=== PATIENT | female | born 2000 | race Caucasian/White ===

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

== ENCOUNTER 2019-09-13 19:23 | Emergency (ER) | payer BC, OTHER ==
--- NOTE | 2019-09-13 20:11 | EDPHYS ---
Physician Documentation [facility] Name: Jennifer Morley Age: 18 yrs Sex: Female : 2000 Arrival Date: 09/13/2019 Time: 19:26 Bed DIS3 Private MD: ED Physician Aba Echeverria HPI: 09/13 20:02 This 18 yrs old Female presents to ER via Ambulatory with complaints of Uti mady and fear of uti. 20:02 The patient presents with urinary symptoms, frequency, hesitancy, vaginal discharge. mady Onset: The symptoms/episode began/occurred 3 day(s) ago. Modifying factors: The symptoms are alleviated by nothing, the symptoms are aggravated by nothing. Associated signs and symptoms: Pertinent positives: urinary frequency. Severity of symptoms: At their worst the symptoms were mild, in the emergency department the symptoms are unchanged. The patient has not experienced similar symptoms in the past. 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 - Social history:: Smoking status: Patient uses tobacco products, smokes one pack cigarettes per day. - Ebola Screening: : No symptoms or risks identified at this time. - Family history:: not pertinent. ROS: 20:02 Constitutional: Negative for fever, chills, and weight loss, Eyes: Negative for injury, mady pain, redness, and discharge, ENT: Negative for injury, pain, and discharge, Neck: Negative for injury, pain, and swelling, Cardiovascular: Negative for chest pain, palpitations, and edema, Respiratory: Negative for shortness of breath, cough, wheezing, and pleuritic chest pain, Abdomen/GI: Negative for abdominal pain, nausea, vomiting, diarrhea, and constipation, Back: Negative for injury and pain, MS/Extremity: Negative for injury and deformity, Skin: Negative for injury, rash, and discoloration, Neuro: Negative for headache, weakness, numbness, tingling, and seizure. 20:02 : Positive for urinary symptoms, pelvic pain, urinary frequency, small amounts, vaginal discharge. Exam: 20:02 Constitutional: This is a well developed, well nourished patient who is awake, alert, mady and in no acute distress. Head/Face: Normocephalic, atraumatic. Eyes: Pupils equal round and reactive to light, extra-ocular motions intact. Lids and lashes normal. Conjunctiva and sclera are non-icteric and not injected. Cornea within normal limits. Periorbital areas with no swelling, redness, or edema. ENT: Nares patent. No nasal discharge, no septal abnormalities noted. Tympanic membranes are normal and external auditory canals are clear. Oropharynx with no redness, swelling, or masses, exudates, or evidence of obstruction, uvula midline. Mucous membranes moist. Neck: Trachea midline, no thyromegaly or masses palpated, and no cervical lymphadenopathy. Supple, full range of motion without nuchal rigidity, or vertebral point tenderness. No Meningismus. Chest/axilla: Normal chest wall appearance and motion. Nontender with no deformity. No lesions are appreciated. Cardiovascular: Regular rate and rhythm with a normal S1 and S2. No gallops, murmurs, or rubs. Normal PMI, no JVD. No pulse deficits. Respiratory: Lungs have equal breath sounds bilaterally, clear to auscultation and percussion. No rales, rhonchi or wheezes noted. No increased work of breathing, no retractions or nasal flaring. Abdomen/GI: Soft, non-tender, with normal bowel sounds. No distension or tympany. No guarding or rebound. No evidence of tenderness throughout. Back: No spinal tenderness. No costovertebral tenderness. Full range of motion. Skin: Warm, dry with normal turgor. Normal color with no rashes, no lesions, and no evidence of cellulitis. MS/ Extremity: Pulses equal, no cyanosis. Neurovascular intact. Full, normal range of motion. Neuro: Awake and alert, GCS 15, oriented to person, place, time, and situation. Cranial nerves II-XII grossly intact. Motor strength 5/5 in all extremities. Sensory grossly intact. Cerebellar exam normal. Normal gait. Vital Signs: 19:38 BP 107 / 61; Pulse 95; Resp 18; Temp 98.2(O); Pulse Ox 97% on R/A; Weight 58.97 kg (R); lp1 Pain 0/10; MDM: 19:37 Patient medically screened. [facility] 20:02 Data reviewed: vital signs, nurses notes, lab test result(s), urinalysis. [facility] 09/13 20:11 Order name: Urine Dipstick--Ancillary (enter results) [facility] 09/13 20:11 Order name: Urine --Ancillary (enter results) [facility] 09/13 19:37 Order name: Urine Dipstick-Ancillary (obtain specimen); Complete Time: 20:57 [facility] 09/13 19:37 Order name: Urine Test (obtain specimen); Complete Time: 20:56 [facility] Administered Medications: 20:24 Drug: Zithromax 1 grams Route: PO; aj1 20:56 Follow up: Response: No adverse reaction aj1 20:24 Drug: Flagyl 2 grams Route: PO; aj1 20:56 Follow up: Response: No adverse reaction aj1 20:24 Drug: Zofran 4 mg Route: PO; aj1 20:56 Follow up: Response: No adverse reaction [facility] 20:25 Drug: Rocephin (cefTRIAXone) 500 mg Route: IM; Site: right gluteus; aj1 20:55 Follow up: Response: No adverse reaction aj1 Disposition: 09/13/19 20:10 Discharged to Home. Impression: Dysuria, Candidiasis. - Condition is Stable. - Discharge Instructions: Dysuria, Pelvic Rest. - Prescriptions for Fluconazole 150 mg Oral Tablet - take 1 tablet by ORAL route once daily take 1 and the remaining pill in 7 days; 2 tablet. - Medication Reconciliation Form, Thank You Letter, Antibiotic Education, Prescription Opioid Use form. - Follow up: Private Physician; When: 2 - 3 days; Reason: Recheck today's complaints, Continuance of care, Re-evaluation by your physician. Follow up: Huy Graham; When: 2 - 3 days; Reason: Recheck today's complaints, Re-evaluation by your physician. - Problem is new. - Symptoms have improved. Signatures: Dispatcher [employer] Manuela Xie, RN RN aj1 Aba Echeverria MD MD cha Pena, Laura, RN RN lp1 Corrections: (The following items were deleted from the chart) 21:01 20:10 09/13/2019 20:10 Discharged to Home. Impression: Dysuria; Candidiasis. Condition aj1 is Stable. Discharge Instructions: Dysuria, Pelvic Rest. Prescriptions for Fluconazole 150 mg Oral Tablet - take 1 tablet by ORAL route once daily take 1 and the remaining pill in 7 days; 2 tablet. and Forms are Medication Reconciliation Form, Thank You Letter, Antibiotic Education, Prescription Opioid Use. Follow up: Private Physician; When: 2 - 3 days; Reason: Recheck today's complaints, Continuance of care, Re-evaluation by your physician. Follow up: Huy Graham; When: 2 - 3 days; Reason: Recheck today's complaints, Re-evaluation by your physician. Problem is new. Symptoms have improved. mady
--- NOTE | 2019-09-13 20:11 | ER ---
Nurse's Notes [facility] Name: Jennifer Morley Age: 18 yrs Sex: Female : 2000 Arrival Date: 09/13/2019 Time: 19:26 Bed DIS3 Private MD: Diagnosis: Dysuria;Candidiasis Presentation: 09/13 19:30 Presenting complaint: Patient states: Given antibiotics for UTI about a week ago but lp1 dog ate them; States being diagnosed with yeast infection as well; Requesting to have STD testing done; Complaint of vaginal discharge. Transition of care: patient was not received from another setting of care. Onset of symptoms was September 13, 2019. Risk Assessment: Do you want to hurt yourself or someone else? Patient reports no desire to harm self or others. Initial Sepsis Screen: Does the patient meet any 2 criteria? No. Patient's initial sepsis screen is negative. Does the patient have a suspected source of infection? No. Patient's initial sepsis screen is negative. Care prior to arrival: None. 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 - Social history:: Smoking status: Patient uses tobacco products, smokes one pack cigarettes per day. - Ebola Screening: : No symptoms or risks identified at this time. - Family history:: not pertinent. Screenin:33 Abuse screen: Denies threats or abuse. Denies injuries from another. Nutritional lp1 screening: No deficits noted. Tuberculosis screening: No symptoms or risk factors identified. Fall Risk None identified. Assessment: 19:58 General: Appears in no apparent distress. comfortable, Behavior is calm, cooperative, aj1 appropriate for age. Pain: Complains of pain in pelvis. Neuro: Level of Consciousness is awake, alert, obeys commands. Cardiovascular: Patient's skin is warm and dry. Respiratory: Airway is patent Respiratory effort is even, unlabored, Respiratory pattern is regular, symmetrical. GI: No signs and/or symptoms were reported involving the gastrointestinal system. : Reports discharge, from vagina that is urgency, urinary frequency. EENT: No signs and/or symptoms were reported regarding the EENT system. Derm: No signs and/or symptoms reported regarding the dermatologic system. Skin is pink, warm \T\ dry. normal. Musculoskeletal: No signs and/or symptoms reported regarding the musculoskeletal system. Circulation, motion, and sensation intact. 20:58 Reassessment: Patient appears in no apparent distress at this time. No changes from aj1 previously documented assessment. Patient and/or family updated on plan of care and expected duration. Pain level reassessed. Patient is alert, oriented x 3, equal unlabored respirations, skin warm/dry/pink. Vital Signs: 19:38 BP 107 / 61; Pulse 95; Resp 18; Temp 98.2(O); Pulse Ox 97% on R/A; Weight 58.97 kg (R); lp1 Pain 0/10; ED Course: 19:26 Patient arrived in ED. cl3 19:33 Triage completed. lp1 19:33 Arm band placed on. lp1 19:37 Aba Echeverria MD is Attending Physician. mady 19:50 Manuela Keith RN is Primary Nurse. aj1 19:58 Patient has correct armband on for positive identification. aj1 19:58 No provider procedures requiring assistance completed. aj1 20:10 Huy Graham MD is Referral Physician. mady 20:58 Patient did not have IV access during this emergency room visit. aj1 Administered Medications: 20:24 Drug: Zithromax 1 grams Route: PO; aj1 20:56 Follow up: Response: No adverse reaction aj1 20:24 Drug: Flagyl 2 grams Route: PO; aj1 20:56 Follow up: Response: No adverse reaction aj1 20:24 Drug: Zofran 4 mg Route: PO; aj1 20:56 Follow up: Response: No adverse reaction aj1 20:25 Drug: Rocephin (cefTRIAXone) 500 mg Route: IM; Site: right gluteus; aj1 20:55 Follow up: Response: No adverse reaction aj1 Outcome: 20:10 Discharge ordered by . mady 20:58 Discharged to home ambulatory. aj1 20:58 Condition: good 20:58 Discharge instructions given to patient, family, Instructed on discharge instructions, follow up and referral plans. medication usage, Demonstrated understanding of instructions, follow-up care, medications, Prescriptions given X 1. 21:01 Patient left the ED. aj1 Signatures: Manuela Keith RN RN [email or web address] Aba Echeverria MD MD cha Pena, Laura, RN RN lp1 Aakash Arreola cl3
[2019-09-13] MEDS ORDERED: metroNIDAZOLE 500 MG TABLET ONE (20:12)
[2019-09-13] MEDS ORDERED: AZITHROMYCIN 250 MG TAB ONE (20:12)
[2019-09-13] MEDS ORDERED: ONDANSETRON 4 MG (ODT) TAB ONE (20:13)
[2019-09-13] MEDS ORDERED: CEFTRIAXONE 1000 MG/VIAL ONE (20:13)
[2019-09-13 20:27] LABS: Urine Blood NEGATIVE (NEG); Urine Glucose NEGATIVE (NEG); Urine Protein NEGATIVE (NEG); Urine Specific Gravity 1.015 (1.005-1.030)
[2019-09-13 22:21] VITALS: BP 107/61; TEMP 98.2; O2SAT 97
== END 2019-09-13 21:01 | disposition home or self-care (01) ==
LOC: ER 19:23
DX: R30.0 Dysuria (principal); B37.9 Candidiasis, unspecified; Z88.0 Allergy status to penicillin; Z88.1 Allergy status to other antibiotic agents; F17.210 Nicotine dependence, cigarettes, uncomplicated
CPT/HCPCS: 81003; 81025; 96372; 99283

== ENCOUNTER 2021-07-16 15:55 | Emergency (ER) | payer BC, OTHER, SELFPAY ==
[2021-07-16 16:55] LABS: Urine Blood Negative (Negative); Urine Glucose Negative (Negative); Urine Protein 1+ (Negative)
[2021-07-16 17:11] LABS: SARS-COV-2 RT PCR NEGATIVE (NEGATIVE)
--- NOTE | 2021-07-16 17:18 | EDPHYS ---
Physician Documentation [facility] Name: Jennifer Morley Age: 20 yrs Sex: Female : 2000 Arrival Date: 07/16/2021 Time: 15:59 Bed 13 Private MD: ED Physician Aba Echeverria HPI: 07/16 16:04 This 20 yrs old Female presents to ER via Ambulatory with complaints of kb Cough, Shortness Of Breath, Vomiting. 16:04 The patient or guardian reports cough, difficulty breathing. Onset: The kb symptoms/episode began/occurred 3 day(s) ago. Severity of symptoms: At their worst the symptoms were moderate, in the emergency department the symptoms are unchanged. Modifying factors: The symptoms are alleviated by nothing, the symptoms are aggravated by nothing. Associated signs and symptoms: Pertinent positives: fever, nausea, vomiting, Pertinent negatives: chest pain, diarrhea, ear ache, rhinorrhea, sore throat. The patient has experienced a previous episode. The patient has not recently seen a physician. Pt reports cough, congestion, vomiting, subjective fever, chills. States she had covid 3 weeks ago and symptoms were similar so she wanted to make sure she didn't have it again. 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 - Social history:: Smoking status: Patient reports the use of cigarette tobacco products, smokes one-half pack cigarettes per day. ROS: 16:06 Cardiovascular: Negative for chest pain, palpitations, and edema. kb 16:06 Constitutional: Positive for chills, fever, malaise. 16:06 Respiratory: Positive for cough, shortness of breath. 16:06 Abdomen/GI: Positive for nausea and vomiting. 16:06 All other systems are negative. Exam: 16:06 Constitutional: This is a well developed, well nourished patient who is awake, alert, kb and in no acute distress. Head/Face: Normocephalic, atraumatic. ENT: Moist Mucous membranes Respiratory: Respirations even and unlabored. No increased work of breathing, no retractions or nasal flaring. Skin: Warm, dry with normal turgor. Normal color. MS/ Extremity: Pulses equal, no cyanosis. Neurovascular intact. Full, normal range of motion. Neuro: Awake and alert, GCS 15, oriented to person, place, time, and situation. Moves all extremities. Normal gait. Psych: Awake, alert, with orientation to person, place and time. Behavior, mood, and affect are within normal limits. Vital Signs: 16:01 BP 111 / 77; Pulse 102; Resp 18; Temp 98.4; Pulse Ox 98% ; Weight 58.97 kg; Height 5 ch5 ft. 1 in. (154.94 cm); 16:16 BP 111 / 63; Pulse 101; Resp 17; Pulse Ox 98% on R/A; oh 17:32 BP 103 / 53; Pulse 67; Resp 17; Pulse Ox 98% ; oh 16:01 Body Mass Index 24.56 (58.97 kg, 154.94 cm) ch5 MDM: 16:00 Patient medically screened. kb 16:04 Data reviewed: vital signs, nurses notes. Data interpreted: Pulse oximetry: on room air kb is 98 %. Interpretation: normal. Counseling: I had a detailed discussion with the patient and/or guardian regarding: the historical points, exam findings, and any diagnostic results supporting the discharge/admit diagnosis, lab results, radiology results, the need for outpatient follow up, a family practitioner, to return to the emergency department if symptoms worsen or persist or if there are any questions or concerns that arise at home. 07/16 16:03 Order name: Flu 07/16 16:03 Order name: COVID-19 : Document "Date of Symptom Onset" if Symptomatic. 07/16 16:54 Order name: Urine Dipstick-Ancillary; Complete Time: 16:55 EDMS 07/16 16:57 Order name: Urine --Ancillary (enter results) bd 07/16 16:03 Order name: Chest Single View XRAY 07/16 17:12 Order name: COVID-19/FLU A+B; Complete Time: 17:13 EDMS Administered Medications: No medications were administered Disposition Summary: 07/16/21 17:17 Discharge Ordered Location: Home kb Condition: Stable kb Diagnosis - Cough kb - Nausea with vomiting, unspecified kb - state, incidental kb Discharge Instructions: - Discharge Summary Sheet kb - Morning Sickness, Jfid-rf-[id number] kb - Cough, Adult, Pboe-pu-Njly kb Forms: - Medication Reconciliation Form kb - Thank You Letter kb - Antibiotic Education kb - Prescription Opioid Use kb Addendum: 07/18/2021 10:57 Co-signature as Attending Physician, Aba Echeverria MD I agree with the assessment and c ruiz plan of care. Signatures: Dispatcher [employer] EDFatuma Joseph, PUBLIC HEALTH DOCTOR-C PUBLIC HEALTH DOCTOR-Ckb Aba Echeverria MD MD cha Heath, Christopher, RN RN ch5 Corrections: (The following items were deleted from the chart) 07/16 16:04 16:03 PMHx: Depression; ch5 ch5 16:04 16:03 PMHx: Anxiety; ch5 ch5 16:33 16:04 Influenza Screen (A ordered. EDMS EDMS 16:33 16:04 CORONAVIRUS ordered. EDMS EDMS
--- NOTE | 2021-07-16 17:18 | ER ---
Nurse's Notes [facility] Name: Jennifer Morley Age: 20 yrs Sex: Female : 2000 Arrival Date: 07/16/2021 Time: 15:59 Bed 13 Private MD: Diagnosis: Cough;Nausea with vomiting, unspecified; state, incidental Presentation: 07/16 16:01 Chief complaint: Patient states: SHOB. had COVID 3 weeks ago. No Vaccine. Coronavirus ch5 screen: Vaccine status: Patient reports being unvaccinated. Ebola Screen: Patient negative for fever greater than or equal to 101.5 degrees Fahrenheit, and additional compatible Ebola Virus Disease symptoms Patient denies exposure to infectious person. Patient denies travel to an Ebola-affected area in the 21 days before illness onset. Initial Sepsis Screen: Does the patient meet any 2 criteria? Does the patient have a suspected source of infection? No. Patient's initial sepsis screen is negative. Risk Assessment: Do you want to hurt yourself or someone else?. Onset of symptoms was July 13, 2020. 16:01 Method Of Arrival: Ambulatory 5 16:01 Acuity: AYANNA 4 ch5 Triage Assessment: 16:04 General: Appears in no apparent distress. General: Behavior is calm. Pain: Complains of ch5 pain in chest Pain currently is 5 out of 10 on a pain scale. 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 - Social history:: Smoking status: Patient reports the use of cigarette tobacco products, smokes one-half pack cigarettes per day. Screenin:13 Abuse screen: Denies threats or abuse. Nutritional screening: No deficits noted. oh Tuberculosis screening: No symptoms or risk factors identified. Fall Risk None identified. Assessment: 16:11 General: Appears comfortable, Behavior is calm, cooperative, appropriate for age, oh Reports cough and congestion with no relief, states her medications aren't working, diagnosed 2 weeks ago with covid. Cardiovascular: No deficits noted. Rhythm is regular. Respiratory: Reports cough that is pain with cough Airway is patent Respiratory effort is unlabored, Breath sounds with rhonchi. Vital Signs: 16:01 BP 111 / 77; Pulse 102; Resp 18; Temp 98.4; Pulse Ox 98% ; Weight 58.97 kg; Height 5 5 ft. 1 in. (154.94 cm); 16:16 BP 111 / 63; Pulse 101; Resp 17; Pulse Ox 98% on R/A; oh 17:32 BP 103 / 53; Pulse 67; Resp 17; Pulse Ox 98% ; oh 16:01 Body Mass Index 24.56 (58.97 kg, 154.94 cm) [facility] ED Course: 15:59 Patient arrived in ED. mr 16:00 Fat[facility] Alvarado [facility]-C [facility]. kb 16:00 Aba Echeverria MD is Attending Physician. kb 16:03 Triage completed. 5 16:04 Arm band placed on right wrist. 5 16:11 Scooter Alexander, RN is Primary Nurse. oh 16:13 Bed in low position. Call light in reach. oh 16:15 Flu Sent. oh 16:39 COVID-19 : Document "Date of Symptom Onset" if Symptomatic. Sent. kj1 17:23 Chest Single View XRAY In Process Unspecified. EDMS 17:33 No provider procedures requiring assistance completed. oh 17:33 IV discontinued, bleeding controlled, Pressure dressing applied. oh Administered Medications: No medications were administered Outcome: 17:17 Discharge ordered by MD. kb 17:33 Discharged to home oh 17:33 Condition: stable 17:33 Discharge instructions given to patient. 17:34 Patient left the ED. oh Signatures: Dispatcher [employer] EDNH Fatuma Alvarado FNP-C FNP-Ckb Jean-Claude Stacey Sow kj1 Samson Coleman, RN RN 5 Scooter Alexander, RN RN oh Corrections: (The following items were deleted from the chart) 16:04 16:03 PMHx: Depression; [address] [facility] 16:04 16:03 PMHx: Anxiety; [place] [id number] 16:33 16:15 Influenza Screen (A drawn and sent. oh EDMS 16:33 16:15 CORONAVIRUS drawn and sent. oh EDMS
--- NOTE | 2021-07-16 17:32 | RAD REPORT ---
EXAM DESCRIPTION: Concha Single View07/16/2021 5:23 pm CLINICAL HISTORY: Shortness of breath COMPARISON: 2012 FINDINGS: Lungs appear grossly clear. Heart is normal size
[2021-07-16 17:38] VITALS: TEMP 98.4; O2SAT 98
[2021-07-16 17:40] VITALS: BP 103/53
== END 2021-07-16 17:34 | disposition home or self-care (01) ==
LOC: ER 15:55
DX: R11.2 Nausea with vomiting, unspecified (principal); Z33.1 Pregnant state, incidental; Z86.16 Personal history of COVID-19; F17.210 Nicotine dependence, cigarettes, uncomplicated
CPT/HCPCS: 0240U; 71045; 81003; 81025; 99283

== ENCOUNTER 2021-07-21 18:15 | Emergency (ER) | payer SELFPAY ==
[2021-07-21 19:08] LABS: Absolute Lymphocytes (CBC) 1.7 K/uL (0.7-4.9); Basophils % 0.4 % (0-1.3); Lymphocytes % 14.1 % (15.3-44.8); MPV 8.1 fL (7.6-11.3); RBC Red Blood Cell Count 4.68 M/uL (3.86-4.86)
[2021-07-21] MEDS ORDERED: NA CHLORIDE 0.9% 1,000 ML ONE ×2 (19:19→21:03)
[2021-07-21] MEDS ORDERED: ONDANSETRON 4 MG/2 ML VIAL ONE ×3 (19:19→21:55)
[2021-07-21] MEDS ORDERED: FAMOTIDINE 20 MG/2 ML VIAL IV ONE ×2 (19:19→21:03)
[2021-07-21 19:34] LABS: BUN Blood Urea Nitrogen 11 mg/dL (7-18); Bicarbonate 19 mmol/L (21-32); Glucose Level 79 mg/dL (74-106); Lipase 84 U/L (73-393); Potassium 3.4 mmol/L (3.5-5.1); Sodium Level 138 mmol/L (136-145)
[2021-07-21 19:50] LABS: HCG, Quantitative 125350 mIU/mL (1-3)
--- NOTE | 2021-07-21 20:27 | RAD REPORT ---
EXAM DESCRIPTION: US - Transvaginal Study Probe - 07/21/2021 7:46 pm CLINICAL HISTORY: ABD PAIN Pelvic pain. COMPARISON: Abdomen Pelvis W Contrast dated 05/29/2018 FINDINGS: Single viable IUP noted. Positive heart tones are present. The crown-rump length mirtha sures 3.4 cm which is consistent with 10 weeks 0 days. The estimated delivery is 02/16/2022. The yolk sac measures 5 millimeters. The right ovary is volume of 5.9 cc and demonstrates vascular flow. Poss ible exophytic fibroid versus ovary in contact with the uterus. There is vascular flow present. This structure measures 2.7 x 2.1 x 2 cm with volume of 5.9 cc. IMPRESSION: Single viable IUP with positive heart tones measuring 10 weeks 0 day with estimate d delivery of 02/16/2022. Normal right ovary. Difficult to conclusively identify the left ovary. There is a left adnexal struct ure which is either adjacent to or contiguous with the uterus that does demonstrate blood flow. If th e ovary, with an vascular flow is present. The patient had adnexal pathology on the CT from 8 and this may be related.
[2021-07-21] MEDS ORDERED: POTASSIUM 25 MEQ EFFERV TAB ONE (21:03)
[2021-07-21] MEDS ORDERED: PROMETHAZINE INJ 25 MG/ML AMP ONE (21:55)
[2021-07-21] MEDS ORDERED: NA CHLORIDE 0.9% 100 ML ONE (21:59)
--- NOTE | 2021-07-21 23:29 | ER ---
Nurse's Notes [facility] Name: Jennifer Morley Age: 20 yrs Sex: Female : 2000 Arrival Date: 07/21/2021 Time: 18:18 Bed 17 Private MD: Diagnosis: Hyperemesis gravidarum with metabolic disturbance Presentation: 07/21 18:41 Chief complaint: Patient states: increased tired, not able to eat and keep it down x 4 tc5 days, left side abd pain x 2 days. , 9 weeks . Coronavirus screen: Vaccine status: Patient reports being unvaccinated. positive covid 2-3 weeks ago. Ebola Screen: No symptoms or risks identified at this time. Risk Assessment: Do you want to hurt yourself or someone else? Patient reports no desire to harm self or others. Onset of symptoms was July 18, 2021 at 12:00. 18:41 Method Of Arrival: EMS: [facility] tc5 18:41 Acuity: AYANNA 3 tc5 21:23 Initial Sepsis Screen: Does the patient meet any 2 criteria? No. Patient's initial cw2 sepsis screen is negative. 21:23 Initial Sepsis Screen: Does the patient have a suspected source of infection? No. cw2 Patient's initial sepsis screen is negative. 23:56 Note PT UP FOR DISCHARGE AT THIS TIME. PT AWAKE ALERT AOX4 SPEAKING IN FULL SENTENCES. cw2 PT AMBULATORY ALONE WITH A STEADY GAIT. DISCHARGE INSTRUCTIONS DISCUSSED WITH PT ALONG WITH PRESCRIPTIONS X2. ALL QUESTIONS ANSWERED AND NO CONCERNS VERBALIZED AT THIS TIME. IV DC'D CATHETER FULLY INTACT. PT STABLE FOR DISCHARGE. Triage Assessment: 18:46 General: Appears distressed, Behavior is cooperative, anxious, crying. Pain: Complains tc5 of pain in left upper quadrant and left lower quadrant. EENT: No deficits noted. Neuro: No deficits noted. Cardiovascular: No deficits noted. Respiratory: No deficits noted. GI: Reports nausea. : No deficits noted. Reports spotting and yellowish discharge. 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 - Social history:: Smoking status: Patient denies any tobacco usage or history of. Screenin:48 Abuse screen: Denies threats or abuse. Denies injuries from another. Nutritional tc5 screening: No deficits noted. Tuberculosis screening: No symptoms or risk factors identified. Fall Risk None identified. Assessment: 21:22 General: Appears uncomfortable, Behavior is calm, cooperative. Neuro: No deficits cw2 noted. Cardiovascular: No deficits noted. Respiratory: No deficits noted. 22:20 Reassessment: Patient appears in no apparent distress at this time. No changes from cw2 previously documented assessment. Vital Signs: 18:41 BP 112 / 79; Pulse 79; Resp 18; Temp 98.2; Pulse Ox 95% ; Weight 58.97 kg; Height 5 ft. tc5 5 in. (165.10 cm); Pain 9/10; 20:00 BP 106 / 61; Pulse 79; Resp 15; Temp 98.3; Pulse Ox 99% on R/A; cw2 21:00 BP 104 / 65; Pulse 75; Resp 16; Pulse Ox 99% on R/A; cw2 22:00 BP 100 / 61; Pulse 74; Resp 16; Pulse Ox 97% on R/A; cw2 23:00 BP 111 / 71; Pulse 72; Temp 98.4; Pulse Ox 99% on R/A; cw2 18:41 Body Mass Index 21.63 (58.97 kg, 165.10 cm) tc5 ED Course: 18:18 Patient arrived in ED. em1 18:19 Aba Varela PA is PHCP. cp 18:19 Santhosh Manuel MD is Attending Physician. cp 18:22 Attending Physician role handed off by Santhosh Manuel MD [facility] 18:22 Aba Echeverria MD is Attending Physician. mady 18:41 Monica Cheung, NARCISA is Primary Nurse. tc5 18:45 Triage completed. tc5 18:48 Inserted saline lock: 20 gauge in right antecubital area, using aseptic technique. tc5 Blood collected. 19:46 US Transvaginal Study (Probe) In Process Unspecified. EDMS 20:21 COVID swab sent to lab. Flu and/or RSV swab sent to lab. lp1 21:21 Patient has correct armband on for positive identification. Placed in gown. Bed in low cw2 position. Call light in reach. Side rails up X2. 21:23 No provider procedures requiring assistance completed. cw2 21:24 Patient placed in an exam room, on a stretcher, on digital communications manager, on pulse oximetry. cw2 23:26 Huy Graham MD is Referral Physician. cp 07/22 00:01 IV discontinued. cw2 Administered Medications: 07/21 21:18 Drug: Zofran (Ondansetron) 4 mg Route: IVP; Site: right antecubital; cw2 21:18 Drug: Pepcid (famotidine) 20 mg Route: IVP; Site: right antecubital; cw2 21:20 Drug: NS 0.9% 1000 ml Route: IV; Rate: 1 bolus; Site: right antecubital; cw2 07/22 00:04 Follow up: IV Status: Completed infusion; IV Intake: 1000ml cw2 07/21 21:20 Drug: Potassium Effervescent Tablet 50 mEq Route: PO; cw2 21:38 Drug: Zofran (Ondansetron) 4 mg Route: IVP; Site: right antecubital; cw2 21:39 Drug: Phenergan (promethazine) 12.5 mg Route: IVP; Site: right antecubital; cw2 Intake: 07/22 00:04 IV: 1000ml; Total: 1000ml. cw2 Outcome: 07/21 23:29 Discharge ordered by . cp 07/22 00:01 Discharged to home ambulatory. cw2 Condition: good Discharge instructions given to patient, Demonstrated understanding of instructions, follow-up care, medications. 00:12 Patient left the ED. cw2 Signatures: Dispatcher [employer] EDMS Aba Echeverria MD MD cha Martinez, Eric em1 Gracy Dinh, RN RN lp1 Aba Varela PA PA cp Samson Olvera RN RN cw2 Monica Cheung, NARCISA RN tc5 Corrections: (The following items were deleted from the chart) 07/21 18:46 18:45 Allergies: No Known Allergies; tc5 tc5 18:46 18:45 Allergies: Amoxapine; tc5 tc5
--- NOTE | 2021-07-21 23:29 | EDPHYS ---
Physician Documentation [facility] Name: Jennifer Morley Age: 20 yrs Sex: Female : 2000 Arrival Date: 07/21/2021 Time: 18:18 Bed 17 Private MD: ED Physician Aba Echeverria HPI: 07/21 18:45 This 20 yrs old Female presents to ER via EMS with complaints of Vomiting. 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 - Social history:: Smoking status: Patient denies any tobacco usage or history of. ROS: 19:00 Constitutional: Negative for body aches, fever, poor PO intake. cp 19:00 Eyes: Negative for injury, pain, redness, and discharge. cp 19:00 ENT: Negative for ear pain, sore throat, difficulty swallowing, difficulty handling secretions. 19:00 Cardiovascular: Negative for chest pain. 19:00 Respiratory: Positive for cough, with no reported sputum, Negative for shortness of breath, wheezing. 19:00 Abdomen/GI: Positive for abdominal pain, nausea and vomiting, Negative for diarrhea, constipation. 19:00 : Positive for vaginal bleeding, Negative for urinary symptoms, flank pain. 19:00 Neuro: Negative for altered mental status, headache. 19:00 All other systems are negative. Exam: 19:05 Constitutional: The patient appears in no acute distress, alert, awake, non-toxic, well cp developed, well nourished, uncomfortable. 19:05 Head/Face: Normocephalic, atraumatic. cp 19:05 Eyes: Periorbital structures: appear normal, Conjunctiva: normal, no exudate, no injection, Sclera: no appreciated abnormality, Lids and lashes: appear normal, bilaterally. 19:05 ENT: External ear(s): are unremarkable, Nose: is normal, Mouth: Lips: moist, Oral mucosa: pink and intact, moist, Posterior pharynx: Airway: no evidence of obstruction, patent. 19:05 Neck: ROM/movement: is normal, is supple, without pain, no range of motions limitations, no meningismus. 19:05 Chest/axilla: Inspection: normal, Palpation: is normal, no crepitus, no tenderness. 19:05 Cardiovascular: Rate: normal, Rhythm: regular. 19:05 Respiratory: the patient does not display signs of respiratory distress, Respirations: normal, no use of accessory muscles, no retractions, labored breathing, is not present, Breath sounds: decreased breath sounds, are not appreciated, stridor, is not appreciated, + upper airway congestion. wheezing: is not appreciated. 19:05 Abdomen/GI: Inspection: abdomen appears normal, Bowel sounds: active, all quadrants, Palpation: soft, in all quadrants, severe abdominal tenderness, in the left lower quadrant, rebound tenderness, is not appreciated, voluntary guarding, is elicited in the left lower quadrant. 19:05 Back: CVA tenderness, is absent. 19:05 Skin: no rash present. 19:05 Neuro: Orientation: to person, place \T\ time. Mentation: is normal. Vital Signs: 18:41 BP 112 / 79; Pulse 79; Resp 18; Temp 98.2; Pulse Ox 95% ; Weight 58.97 kg; Height 5 ft. tc5 5 in. (165.10 cm); Pain 9/10; 20:00 BP 106 / 61; Pulse 79; Resp 15; Temp 98.3; Pulse Ox 99% on R/A; cw2 21:00 BP 104 / 65; Pulse 75; Resp 16; Pulse Ox 99% on R/A; cw2 22:00 BP 100 / 61; Pulse 74; Resp 16; Pulse Ox 97% on R/A; cw2 23:00 BP 111 / 71; Pulse 72; Temp 98.4; Pulse Ox 99% on R/A; cw2 18:41 Body Mass Index 21.63 (58.97 kg, 165.10 cm) tc5 MDM: 18:23 Patient medically screened. mady 19:00 Differential diagnosis: STD, ectopic , dehydration, electrolyte abnormality. cp 23:25 Data reviewed: vital signs, nurses notes, lab test result(s), radiologic studies, cp ultrasound. Counseling: I had a detailed discussion with the patient and/or guardian regarding: the historical points, exam findings, and any diagnostic results supporting the discharge/admit diagnosis, lab results, radiology results, the need for outpatient follow up, an OB/Gyne specialist, to return to the emergency department if symptoms worsen or persist or if there are any questions or concerns that arise at home. Response to treatment: the patient's symptoms have markedly improved after treatment, and as a result, I will discharge patient. 07/21 18:37 Order name: Abo/rh Typing; Complete Time: 23:25 cp 07/21 23:25 Interpretation: Reviewed. cp 07/21 18:37 Order name: Basic Metabolic Panel; Complete Time: 20:20 cp 07/21 19:38 Interpretation: Normal except: K 3.4; CO2 19; CRE 0.50. cp 07/21 18:37 Order name: CBC with Diff; Complete Time: 19:38 cp 07/21 19:38 Interpretation: Normal except: WBC 12.20; RDW 12.0; SHAYY% 81.0; LYM% 14.1; NEUT A 9.9. cp 07/21 18:37 Order name: Quantitative Hcg; Complete Time: 20:20 cp 07/21 20:20 Interpretation: Abnormal: HCGQ [id number]. cp 07/21 18:37 Order name: Lipase; Complete Time: 20:20 cp 07/21 18:37 Order name: US Transvaginal Study (Probe); Complete Time: 20:36 cp 07/21 19:38 Order name: Influenza Screen (a \T\ B); Complete Time: 20:50 cp 07/21 21:36 Order name: SARS-COV-2 RT PCR; Complete Time: 21:42 EDMS 07/21 23:44 Order name: Urine Dipstick-Ancillary; Complete Time: 23:47 EDMS 07/21 18:37 Order name: IV Saline Lock; Complete Time: 18:49 cp 07/21 18:37 Order name: Labs collected and sent; Complete Time: 00:01 cp 07/21 18:37 Order name: NPO; Complete Time: 00:01 cp 07/21 18:37 Order name: Urine Dipstick-Ancillary (obtain specimen); Complete Time: 00:01 cp 07/21 18:37 Order name: Urine Test (obtain specimen); Complete Time: 00:01 cp Administered Medications: 21:18 Drug: Zofran (Ondansetron) 4 mg Route: IVP; Site: right antecubital; cw2 21:18 Drug: Pepcid (famotidine) 20 mg Route: IVP; Site: right antecubital; cw2 21:20 Drug: NS 0.9% 1000 ml Route: IV; Rate: 1 bolus; Site: right antecubital; cw2 07/22 00:04 Follow up: IV Status: Completed infusion; IV Intake: 1000ml cw2 07/21 21:20 Drug: Potassium Effervescent Tablet 50 mEq Route: PO; cw2 21:38 Drug: Zofran (Ondansetron) 4 mg Route: IVP; Site: right antecubital; cw2 21:39 Drug: Phenergan (promethazine) 12.5 mg Route: IVP; Site: right antecubital; 2 Disposition: 07/22 06:38 Co-signature as Attending Physician, Aba Echeverria MD I agree with the assessment and mady plan of care. Disposition Summary: 07/21/21 23:29 Discharge Ordered Location: Home cp Problem: new cp Symptoms: have improved cp Condition: Stable cp Diagnosis - Hyperemesis gravidarum with metabolic disturbance cp Followup: cp - With: Huy Graham MD - When: 2 - 3 days - Reason: Recheck today's complaints Discharge Instructions: - Discharge Summary Sheet cp - Abdominal Pain During cp - Hyperemesis Gravidarum cp - Care cp - Ultrasound cp Forms: - Medication Reconciliation Form cp - Thank You Letter cp - Antibiotic Education cp - Prescription Opioid Use cp Prescriptions: - Vitamin - take 1 tablet by ORAL route once daily; 60 tablet; Refills: 0, Product cp Selection Permitted - promethazine 25 mg Oral Tablet - take 1 tablet by ORAL route every 6 hours As needed; 20 tablet; Refills: 0, cp Product Selection Permitted Signatures: Dispatcher [employer] EDAba Kaur MD MD cha Page, Corey, PA PA cp Samson Olvera RN RN cw2 Monica Cheung RN RN tc5 Corrections: (The following items were deleted from the chart) 07/21 18:46 18:45 Allergies: No Known Allergies; tc5 tc5 18:46 18:45 Allergies: Amoxapine; tc5 tc5 20:35 19:38 CORONAVIRUS+MR.LAB.BRZ ordered. EDIN EDMS 23:48 23:29 Vomiting of , unspecified cp cp
[2021-07-21 23:44] LABS: Urine Blood Negative (Negative); Urine Glucose Negative (Negative); Urine Protein Negative (Negative); Urine Specific Gravity >=1.030 (1.005-1.030); Urine pH 6.5 (5.0-7.0)
[2021-07-22 00:34] VITALS: BP 111/71; TEMP 98.4; O2SAT 99
== END 2021-07-22 00:12 | disposition home or self-care (01) ==
LOC: ER 18:15
DX: O21.1 Hyperemesis gravidarum with metabolic disturbance (principal); Z3A.10 10 weeks gestation of pregnancy; Z20.822 Contact with and (suspected) exposure to COVID-19; Z88.0 Allergy status to penicillin; Z88.1 Allergy status to other antibiotic agents
CPT/HCPCS: 36415; 76830; 80048; 81003; 83690; 84702; 85025; 86900; 86901; 87804; 96361; 96374; 96375; 99284; J2405; J2550; J7030; U0003